=== PATIENT | female | born 1980 | race Two or more races ===

== ENCOUNTER 2024-11-09 15:27 | Emergency (ER) | payer OTHER ==
[~2024-11-09] VITALS: Ht 170.2 cm; Wt 113.4 kg
[~2024-11-09 15:27] MED LIST: ACTEMRA80 MG/4 ML; CEFUROXIME500 MG PO; FOLIC ACID1 MG; KETO10TA2 PO; LEVAQUIN500 MG PO; METHOTREXATE; MILLIPRED DP5 M1 PO; MILLIPRED5 MG; MUPIROCIN22 GM TOP; ORENCIA125 MG/1 M SQ; SEASONALE1 BLIST PA PO
[2024-11-09] MEDS ORDERED: ACETAMINOPHEN 500 MG GEL..CAP PO ONE ×2 (18:00→18:51)
[2024-11-09 19:16] LABS: BASO % 0.5 % (0.1-1.2); EOS # 0.20 (0.04-0.54); EOS % 2.6 % (0.7-7.0); LYMPH # 0.51 (1.18-3.74); LYMPH % 6.7 % (19.3-53.1); MEAN PLATELET VOLUME 10.20 fl (9.4-12.4); MONO # 0.77 (0.24-0.82); MONO % 10.1 % (4.7-12.5); NEUT # 6.12 (1.56-6.13); NEUT % 79.8 % (34.0-71.1); RED CELL DISTRIBUTION WIDTH 13.2 % (11.6-14.4)
[2024-11-09 20:12] LABS: COVID-19 AG NEGATIVE (NEGATIVE)
[2024-11-09] MEDS ORDERED: KETOROLAC TROMETHAMINE 60 MG VIAL IM ONE ×2 (20:16→20:30)
[2024-11-09] MEDS ORDERED: DICLOFENAC SODI50 MG PO (20:33)
== END 2024-11-09 20:45 | disposition home or self-care (01) ==
LOC: ER 15:27
PROVIDERS: General Practice
DX: M94.0 Chondrocostal junction syndrome [Tietze] (principal); R07.89 Other chest pain; J02.9 Acute pharyngitis, unspecified; Z91.013 Allergy to seafood; Z88.8 Allergy status to other drugs, medicaments and biological substances; J45.909 Unspecified asthma, uncomplicated; M06.8A Other specified rheumatoid arthritis, other specified site; E03.8 Other specified hypothyroidism; Z20.822 Contact with and (suspected) exposure to COVID-19
CPT/HCPCS: 36415; 71046; 93005; 96372; 99283; J1885